=== PATIENT | male | born 1960 | race Caucasian/White ===

== ENCOUNTER → 2019-10-10 | Emergency (ER) | payer SELFPAY ==
[~2019-10-10] VITALS: Ht 175.3 cm; Wt 79.8 kg
[~2019-10-10] MED LIST: cloNIDine HCL 0.1 MG TAB ONE; cloNIDine HCL 0.1 MG TAB PO ONE
[2019-10-10 03:51] LABS: Basophils # (auto) 0.1 10 ^3/uL (0-0.2); Basophils % (auto) 1.3 % (0.0-2.0); Eosinophils # (auto) 0.3 10 ^3/uL (0-0.8); Eosinophils % (auto) 3.1 % (0.0-7.0); Hematocrit 40.9 % (41.0-53.0); Hemoglobin 14.3 g/dL (13.5-17.5); Lymphocytes % (auto) 23.8 % (10.0-50.0); Mean Corpuscular Hemoglobin 33.1 pg (28.0-32.0); Mean Corpuscular Hgb Conc. 34.9 g/dL (32.0-36.0); Mean Corpuscular Volume 94.8 fL (80.0-100.0); Monocytes % (auto) 11.3 % (0.0-12.0); Neutrophils # (auto) 5.1 10 ^3/uL (1.6-8.6); Neutrophils % (auto) 60.5 % (37.0-80.0); Platelet Count (auto) 361 10^3/uL (140-450); Red Blood Cells 4.32 10^6/uL (4.5-5.90); Red Cell Distribution Width 12.8 % (11.8-14.3); White Blood Cell 8.5 10^3/uL (4.4-10.8)
[2019-10-10 04:04] LABS: Albumin 3.9 g/dL (3.4-5.0); Anion Gap 7 (5-15); Blood Urea Nitrogen 16 mg/dL (7-18); Calcium 8.8 mg/dL (8.5-10.1); Carbon Dioxide 27 mmol/L (21-32); Chloride 99 mmol/L (98-107); Glucose 90 mg/dL (74-106); Magnesium 1.8 mg/dL (1.6-2.6); Potassium 3.7 mmol/L (3.5-5.1); Sodium 133 mmol/L (136-145)
[2019-10-10 04:06] LABS: Alanine Aminotransferase 36 U/L (16-61); Aspartate Aminotransferase 38 U/L (15-37); GFR African American 90 mL/min; GFR Non-African American 74 mL/min
[2019-10-10 04:11] LABS: Alkaline Phosphatase 125 U/L (45-117); Bilirubin, Total 0.4 mg/dL (0.2-1.0); Total Protein 8.4 g/dL (6.4-8.2)
[2019-10-10 04:57] LABS: BUN/Creatinine Ratio 14.8
[2019-10-10 05:00] VITALS: BP 167/104
[2019-10-10 06:13] LABS: Urine Bacteria NONE SEEN /hpf (None Seen); Urine Blood Negative /uL (Negative); Urine Specific Gravity 1.004 (1.001-1.035); Urine WBC <1 /hpf (0 - 3)
[2019-10-10 06:21] LABS: Alcohol, Urine < 3.0 mg/dL (0-5); Amphetamine Screen, Urine POSITIVE (NEGATIVE); Barbiturate Scree,Urine NEGATIVE (NEGATIVE); Benzodiazephine Screen, Urine NEGATIVE (NEGATIVE); Cannabinoid Screen, Urine POSITIVE (NEGATIVE); Cocaine Screen, Urine NEGATIVE (NEGATIVE); Opiate Scree,Urine NEGATIVE (NEGATIVE); Phencyclidine Screen, Urine NEGATIVE (NEGATIVE)
== END | disposition home or self-care (01) ==
LOC: EDUNIT# 02:48 → ER 03:04 → EDBD 03:04
DX: I10 Essential (primary) hypertension (principal); F15.10 Other stimulant abuse, uncomplicated; F17.210 Nicotine dependence, cigarettes, uncomplicated; R00.2 Palpitations
CPT/HCPCS: 36415; 71045; 80053; 80307; 81001; 83735; 83880; 84443; 84484; 85025; 93005

== ENCOUNTER 2019-10-13 13:04 | Inpatient (IN) | payer MEDICAID ==
[~2019-10-13] VITALS: Ht 175.3 cm; Wt 76.0 kg
[2019-10-13] MEDS ORDERED: CLINDAMYCIN 600MG IV 50 ML IV ONE (16:30)
[2019-10-13 16:34] LABS: Basophils # (auto) 0.1 10 ^3/uL (0-0.2); Basophils % (auto) 0.3 % (0.0-2.0); Eosinophils # (auto) 0 10 ^3/uL (0-0.8); Hematocrit 37.5 % (41.0-53.0); Hemoglobin 12.7 g/dL (13.5-17.5); Lymphocytes # (auto) 0.6 10 ^3/uL (0.4-5.4); Lymphocytes % (auto) 2.9 % (10.0-50.0); Mean Corpuscular Hemoglobin 32.1 pg (28.0-32.0); Mean Corpuscular Hgb Conc. 33.9 g/dL (32.0-36.0); Mean Corpuscular Volume 94.5 fL (80.0-100.0); Monocytes # (auto) 0.8 10 ^3/uL (0-1.3); Neutrophils # (auto) 18.7 10 ^3/uL (1.6-8.6); Neutrophils % (auto) 92.8 % (37.0-80.0); Platelet Count (auto) 259 10^3/uL (140-450); Red Blood Cells 3.97 10^6/uL (4.5-5.90); Red Cell Distribution Width 12.8 % (11.8-14.3); White Blood Cell 20.1 10^3/uL (4.4-10.8)
[2019-10-13 16:53] LABS: Albumin 3.2 g/dL (3.4-5.0); BUN/Creatinine Ratio 13.6; Calcium 8.5 mg/dL (8.5-10.1); Potassium 3.8 mmol/L (3.5-5.1)
[2019-10-13 16:55] LABS: Bilirubin, Total 0.7 mg/dL (0.2-1.0); Total Protein 7.5 g/dL (6.4-8.2)
[2019-10-13] MEDS ORDERED: MORPHINE SULF INJ 2 MG/ML SYRINGE 1ML IV PRN ×2 (17:15→17:30)
[2019-10-13] MEDS ORDERED: ACETAMINOPHEN 500 MG TAB PO ONE (17:15)
[2019-10-13] MEDS ORDERED: NITROGLYCERIN 0.4 MG SL TAB SL PRN ×3 (17:15→17:30)
[2019-10-13] MEDS: SODIUM CHLORIDE 0.9% 1,000 ML IV SCH (17:27)
[2019-10-13] MEDS ORDERED: ONDANSETRON HCL 4 MG/2 ML VIAL IV PRN (17:30)
[2019-10-13] MEDS ORDERED: ALUM & MAG HYDROX-SIMETH LIQ(MAALOX) 30 ML PO ONE (17:30)
[2019-10-13] MEDS ORDERED: VANCOMYCIN PER PHARMACY 0 MG IV SCH (17:30)
[2019-10-13] MEDS ORDERED: PIPERACILLIN-TAZO 4.5GM 100 ML IV ONE (17:30)
[2019-10-13] MEDS ORDERED: LORazepam 0.5 MG TAB PO PRN (17:30)
[2019-10-13] MEDS ORDERED: SODIUM CHLORIDE 0.9% 2,300 ML IV ONE (17:30)
[2019-10-13] MEDS ORDERED: DEXTROSE (50%) 50ML SYRG IV PRN (17:30)
[2019-10-13] MEDS ORDERED: MORPHINE SULFATE 4 MG/ML SYR/VIAL IV PRN (17:30)
[2019-10-13] MEDS: ASPirin 81 mg TAB PO SCH (17:36)
[2019-10-13] MEDS ORDERED: MULTIPLE VITAMIN TAB PO ONE (17:45)
[2019-10-13] MEDS ORDERED: FOLIC ACID 1 MG TAB PO ONE (17:45)
[2019-10-13] MEDS ORDERED: cloNIDine HCL 0.1 MG TAB PO PRN (17:45)
[2019-10-13] MEDS ORDERED: FAMOTIDINE 20 MG TAB PO ONE (17:45)
[2019-10-13] MEDS: InsuLIN REG 1unit/0.01ml Soln (100units/ml) SC SCH (18:00)
[2019-10-13] MEDS: ACCU-CHEK COMFORT CURVE STRIP VI SCH (18:00)
--- NOTE | 2019-10-13 21:00 | NUR ---
ADMITTED PATIENT FROM THE ER, AAOX4. NO DISTRESS NOTED. AFEBRILE. COMPLAINED OF RIGHT FOOT PAIN. WILL MEDICATE PATIENT. NO SOB NOTED. INTRODUCED MYSELF TO THE PATIENT. ORIENTATION GIVEN. ROUTINE ADMISSION DONE. POCS DISCUSSED WITH PATIENT AND SHOWED UNDERSTANDING. BED KEPT ON LOWEST POSITION. SIDE RAILS UP. CALL LIGHT/TABLE IN REACH. KEPT COMFORTABLE.
[2019-10-13] MEDS: VANCOMYCIN 1GM/250ML 250 ML IV SCH (21:30)
[2019-10-13] MEDS: OXYCODONE W/ ACETAMINOPHEN 5/325MG TABLET PO PRN (21:33)
[2019-10-13 22:00] VITALS: BP_SYST 123; BP_SYST 127; BP_DIAS 74
[2019-10-13 22:30] VITALS: BP 123/74
[2019-10-14] MEDS: PIPERACILLIN-TAZOB 3.375GM 100 ML IV SCH ×4 (00:32→18:47)
[2019-10-14] MEDS: ACCU-CHEK COMFORT CURVE STRIP VI SCH ×4 (00:32→17:55)
[2019-10-14 05:00] VITALS: BP 137/76
[2019-10-14] MEDS: InsuLIN REG 1unit/0.01ml Soln (100units/ml) SC SCH ×4 (05:58→17:57)
[2019-10-14] MEDS: SODIUM CHLORIDE 0.9% 1,000 ML IV SCH ×2 (05:59→21:37)
[2019-10-14 06:11] LABS: Basophils # (auto) 0 10 ^3/uL (0-0.2); Basophils % (auto) 0.2 % (0.0-2.0); Eosinophils # (auto) 0 10 ^3/uL (0-0.8); Hemoglobin 11.9 g/dL (13.5-17.5); Lymphocytes # (auto) 0.6 10 ^3/uL (0.4-5.4); Lymphocytes % (auto) 3.6 % (10.0-50.0); Mean Corpuscular Hemoglobin 31.9 pg (28.0-32.0); Mean Corpuscular Volume 93.7 fL (80.0-100.0); Monocytes # (auto) 1.2 10 ^3/uL (0-1.3); Monocytes % (auto) 6.9 % (0.0-12.0); Neutrophils # (auto) 15.6 10 ^3/uL (1.6-8.6); Neutrophils % (auto) 89.3 % (37.0-80.0); Platelet Count (auto) 247 10^3/uL (140-450); Red Blood Cells 3.73 10^6/uL (4.5-5.90); White Blood Cell 17.4 10^3/uL (4.4-10.8)
[2019-10-14 06:15] LABS: Albumin 2.7 g/dL (3.4-5.0); Anion Gap 9 (5-15); Blood Urea Nitrogen 16 mg/dL (7-18); Carbon Dioxide 24 mmol/L (21-32); Chloride 98 mmol/L (98-107); Glucose 99 mg/dL (74-106); Magnesium 1.7 mg/dL (1.6-2.6); Potassium 3.8 mmol/L (3.5-5.1); Sodium 131 mmol/L (136-145)
[2019-10-14 06:25] LABS: Alanine Aminotransferase 35 U/L (16-61); Alkaline Phosphatase 88 U/L (45-117); Aspartate Aminotransferase 40 U/L (15-37); BUN/Creatinine Ratio 15.8; Bilirubin, Total 0.6 mg/dL (0.2-1.0); Cholesterol 133 mg/dL (< 200); GFR African American 97 mL/min; GFR Non-African American 80 mL/min; HDL Cholesterol 70 mg/dL (40-59); LDL Cholesterol 51 mg/dL (< 100); Lactate Dehydrogenase 210 U/L (87-241); Phosphorus 1.8 mg/dL (2.5-4.90); Total Protein 6.9 g/dL (6.4-8.2); Triglycerides 47 mg/dL (< 150)
[2019-10-14 06:34] LABS: CRP High Sensitivity > 19 mg/dL (< 0.3)
[2019-10-14 07:28] LABS: Urine Bacteria NONE SEEN /hpf (None Seen); Urine Blood 2+ /uL (Negative); Urine Specific Gravity 1.019 (1.001-1.035); Urine WBC <1 /hpf (0 - 3)
--- NOTE | 2019-10-14 07:30 | NUR ---
Opening Shift Note Assuming care of patient at this time. Patient is awake and alert. Patient denies pain. Patient shows no signs or symptoms of distress or shortness of breath. Bed is locked and lowered with side rails up x2. Instructed patient on the plan of care for today and to call for assistance as needed. Call light within reach. Will continue to round hourly and as needed.
[2019-10-14 07:44] LABS: Alcohol, Urine < 3.0 mg/dL (0-5); Amphetamine Screen, Urine POSITIVE (NEGATIVE); Barbiturate Scree,Urine NEGATIVE (NEGATIVE); Benzodiazephine Screen, Urine NEGATIVE (NEGATIVE); Cannabinoid Screen, Urine POSITIVE (NEGATIVE); Cocaine Screen, Urine NEGATIVE (NEGATIVE); Opiate Scree,Urine NEGATIVE (NEGATIVE); Phencyclidine Screen, Urine NEGATIVE (NEGATIVE)
[2019-10-14] MEDS: VANCOMYCIN 1GM/250ML 250 ML IV SCH ×2 (08:49→21:41)
[2019-10-14 09:00] VITALS: BP 134/76
[2019-10-14] MEDS: ASPirin 81 mg TAB PO SCH (09:55)
[2019-10-14] MEDS: FOLIC ACID 1 MG TAB PO SCH (09:55)
[2019-10-14] MEDS: DOCUSATE SOD 100 MG CAP PO SCH (09:55)
[2019-10-14] MEDS: FAMOTIDINE 20 MG TAB PO SCH ×2 (09:55→21:41)
[2019-10-14] MEDS: MULTIPLE VITAMIN TAB PO SCH (09:55)
[2019-10-14] MEDS: ENOXAPARIN SOD 40 MG/0.4 ML SYRINGE SC SCH (09:56)
--- NOTE | 2019-10-14 09:59 | NUR ---
Received Dumper Consult as pt has been homeless for over a year. Pt is alert and oriented times 3. Pt states he has been residing on the streets or with friends if the allow him. Pt does not have any ID. Pt states he rejects the idea that he go to a jail. Pt has a sore on the bottom of his foot and cellulitis down his leg. Pt states he will not go to a SNF if ne needs additional care. Pt states he does not use drugs. However, on the consult it states that he does. Pt has no cell phone, he states he has clothes, may need transportation and a sack lunch. Pt cannot go to jail without Id. Pt states he refuses to go to the [facility] on [address] ([id number] [place] [address]) 6:30PM -7am. Will need follow. Pt accepted the resource packet.
--- NOTE | 2019-10-14 10:00 | NUR ---
Wound Care Photos Wound care photos taken at this time. Patient tolerated well.
--- NOTE | 2019-10-14 10:30 | NUR ---
WOUND CARE NOTE: IN TO SEE PATIENT AT THIS TIME PER WOUND CARE CONSULT REQUEST. PATIENT RECENTLY ADMITTED TO [facility] WITH DIAGNOSIS OF R FOOT CELLULITIS. PATIENT WAS NOTED TO HAVE A WOUND TO THE RIGHT PLANTAR FOOT UPON ADMIT. WOUND PHOTO WAS TAKEN BY BEDSIDE NURSE FOR REFERENCE. PATIENT HAS CURRENT CLARA SCORE OF 21. PATIENT IS FULLY AMBULATORY, CAN SELF TURN/REPOSITION SELF. PATIENT STATES THAT HE NOTICED A WOUND TO THE RIGHT PLANTAR FOREFOOT APPROXIMATELY ONE WEEK AGO, D/T ILL FITTING SHOE. PATIENT IS NOTED TO HAVE A 2 X 2.5 CM NECROTIC ULCER COVERED WITH BLACK SOFT ESCHAR. APPEARS TO HAVE STARTED A BLISTER. THERE IS NO OPEN AREAS, NO DRAINAGE NOTED. APPLIED OPTIFOAM GENTLE DRESSING AND STOCKINETTE TO WOUND, WOUND WILL DRAIN WHEN PATIENT AMBULATES. PATIENT HAS A PODIATRY CONSULT PENDING WITH DR. CASTILLO. NO OTHER WOUNDS NOTED AT THIS TIME. RECOMMENDATIONS: WILL DEFER ALL RECOMMENDATIONS TO ENERGY ENGINEER AT THIS TIME. NO FURTHER WOUND CARE MONITORING NEEDED. Addendum: 10/14/19 at 1428 by Jessica Tyler RN Amended: Links added.
[2019-10-14] MEDS ORDERED: SODIUM PHOSPHATES 24 MEQ in SODIUM CHL 0.9% 100 ML IV ONE (11:00)
[2019-10-14 11:36] LABS: INR 1.06 (0.9-1.15)
[2019-10-14] MEDS: MAGNESIUM SULFATE 1GM/100ML 100 ML IV SCH ×2 (12:27→17:20)
[2019-10-14 13:00] VITALS: BP 156/82
--- NOTE | 2019-10-14 15:30 | NUR ---
Podiatry Consult Dr. Parks at bedside for podiatry consult. Wound care done by at this time.
[2019-10-14 16:40] VITALS: BP 158/99
--- NOTE | 2019-10-14 19:35 | NUR ---
OPENING NOTE REPORT RECEIVED FROM DAY SHIFT RN PATIENT IS A/OX4 RESTING IN BED, NO S/S OF DISTRESS. PHYSICAL ASSESSMENT DONE-SEE INTERVENTIONS. IV NOTED TO RIGHT AND LEFT AC. DRESSING TO RIGHT FOOT. RIGHT LEG REDNESS AND SWELLING NOTED. POC DISCUSSED, ALL QUESTIONS ANSWERED. WILL MONITOR Q1H PRN THROUGHOUT SHIFT, CALL LIGHT WITHIN REACH.
--- NOTE | 2019-10-14 19:35 | NUR ---
Closing Shift Note Patient resting in bed. No distress noted. Report given. Will endorse care to the office technology professor RN.
[2019-10-14] MEDS: OXYCODONE W/ ACETAMINOPHEN 5/325MG TABLET PO PRN (21:46)
--- NOTE | 2019-10-14 21:46 | NUR ---
PAIN PATIENT C/O 10/10 PAIN TO RIGHT LEG. ORDERED PERCOCET ADMINISTERED- SEE INTERVENTIONS WILL REASSESS IN ONE HOUR
[2019-10-14 21:50] VITALS: BP 143/88
--- NOTE | 2019-10-14 22:46 | NUR ---
PAIN REASSESSMENT PATIENT STATES PAIN IS NOW AT 5/10. PATIENT COMFORTABLE AT THIS TIME
[2019-10-15] MEDS: PIPERACILLIN-TAZOB 3.375GM 100 ML IV SCH ×5 (00:06→23:44)
[2019-10-15] MEDS: ACCU-CHEK COMFORT CURVE STRIP VI SCH ×5 (00:07→23:55)
--- NOTE | 2019-10-15 03:30 | NUR ---
IV removal. IV TO RIGHT AC OUT. PT ACCIDENTALLY PULLED IT OUT WHILE SLEEPING catheter fully intact. Pressure dressing applied to site. Patient tolerated well.
--- NOTE | 2019-10-15 03:45 | NUR ---
IV insertion IV access obtained, via clean sterile technique by inserting 20 gauge catheter at RIGHT FOREARM after 1 attempt. IV secured properly. No trauma to site. Patient tolerated well.
[2019-10-15 05:09] VITALS: BP 131/78
[2019-10-15] MEDS: OXYCODONE W/ ACETAMINOPHEN 5/325MG TABLET PO PRN ×5 (05:33→23:55)
[2019-10-15] MEDS: InsuLIN REG 1unit/0.01ml Soln (100units/ml) SC SCH ×5 (05:33→23:55)
--- NOTE | 2019-10-15 05:33 | NUR ---
PAIN PATIENT C/O 10/10 PAIN TO RIGHT LEG. PATIENT REQUESTS HIS PERCOCET. PERCOCET ADMINISTERED ORDERED, SEE EMAR FOR DETAILS. WILL REASSESS PAIN IN ONE HOUR
[2019-10-15 05:46] LABS: Basophils # (auto) 0 10 ^3/uL (0-0.2); Basophils % (auto) 0.3 % (0.0-2.0); Eosinophils # (auto) 0 10 ^3/uL (0-0.8); Eosinophils % (auto) 0.2 % (0.0-7.0); Hematocrit 34.9 % (41.0-53.0); Hemoglobin 12.1 g/dL (13.5-17.5); Lymphocytes % (auto) 7.3 % (10.0-50.0); Mean Corpuscular Hemoglobin 32.7 pg (28.0-32.0); Mean Corpuscular Hgb Conc. 34.7 g/dL (32.0-36.0); Mean Corpuscular Volume 94.2 fL (80.0-100.0); Monocytes # (auto) 1.4 10 ^3/uL (0-1.3); Monocytes % (auto) 10.5 % (0.0-12.0); Neutrophils # (auto) 10.9 10 ^3/uL (1.6-8.6); Neutrophils % (auto) 81.7 % (37.0-80.0); Platelet Count (auto) 252 10^3/uL (140-450); Red Cell Distribution Width 12.8 % (11.8-14.3); White Blood Cell 13.4 10^3/uL (4.4-10.8)
[2019-10-15 06:07] LABS: Albumin 2.7 g/dL (3.4-5.0); Anion Gap 7 (5-15); Blood Urea Nitrogen 14 mg/dL (7-18); Calcium 8.2 mg/dL (8.5-10.1); Carbon Dioxide 28 mmol/L (21-32); Chloride 98 mmol/L (98-107); Glucose 86 mg/dL (74-106); Magnesium 2.2 mg/dL (1.6-2.6); Potassium 3.7 mmol/L (3.5-5.1); Sodium 133 mmol/L (136-145)
[2019-10-15 06:19] LABS: Alanine Aminotransferase 37 U/L (16-61); Alkaline Phosphatase 100 U/L (45-117); Aspartate Aminotransferase 45 U/L (15-37); BUN/Creatinine Ratio 12.7; Bilirubin, Total 0.4 mg/dL (0.2-1.0); GFR African American 88 mL/min; GFR Non-African American 73 mL/min; Total Protein 7.5 g/dL (6.4-8.2)
[2019-10-15 06:24] LABS: CRP High Sensitivity > 19 mg/dL (< 0.3)
--- NOTE | 2019-10-15 06:33 | NUR ---
PAIN REASSESSMENT PATIENT IS SLEEPING COMFORTABLY. NO VISIBLE SIGNS OF PAIN OR DISTRESS
--- NOTE | 2019-10-15 06:52 | NUR ---
CLOSING PATIENT SLEEPING COMFORTABLY. NO S/S OF DISTRESS. CALL LIGHT WITHIN REACH. WILL ENDORSE CARE TO AM SHIFT RN
--- NOTE | 2019-10-15 07:25 | NUR ---
Opening shift note Assumed care of patient. Patient A&Ox4, respirations even and non-labored with no s/s of distress. Discussed POC with patient who verbalized understanding. IVs flushed, patent and intact. Bed lowered/locked with 2 side rails up. Call light within reach. Will continue to monitor.
[2019-10-15 08:30] VITALS: BP 123/77
[2019-10-15] MEDS: SODIUM CHLORIDE 0.9% 1,000 ML IV SCH ×2 (09:27→23:44)
[2019-10-15] MEDS: FOLIC ACID 1 MG TAB PO SCH (11:03)
[2019-10-15] MEDS: DOCUSATE SOD 100 MG CAP PO SCH (11:03)
[2019-10-15] MEDS: ASPirin 81 mg TAB PO SCH (11:03)
[2019-10-15] MEDS: ENOXAPARIN SOD 40 MG/0.4 ML SYRINGE SC SCH (11:04)
[2019-10-15] MEDS: MULTIPLE VITAMIN TAB PO SCH (11:04)
[2019-10-15] MEDS: FAMOTIDINE 20 MG TAB PO SCH ×2 (11:04→21:57)
[2019-10-15] MEDS: VANCOMYCIN 1GM/250ML 250 ML IV SCH ×2 (12:41→21:43)
--- NOTE | 2019-10-15 16:20 | NUR ---
D/C Planning Per SS consult for wound care. Patient does not have home health benefits with [facility]. MD Dr. Burr was informed.
--- NOTE | 2019-10-15 17:06 | NUR ---
Pain Patient is complaining of 10/10 pain to his right leg. Will administer percocet per doctor's orders.
--- NOTE | 2019-10-15 17:07 | NUR ---
Low Blood Sugar Checked patient's blood sugar at this time. Blood sugar was 59L. Gave 3 orange juice boxes at this time. Patient is asymptomatic.
--- NOTE | 2019-10-15 17:14 | NUR ---
Reassess Blood sugar Reassessed patient's blood sugar, currently 67L at this time.
[2019-10-15 17:30] VITALS: BP 141/92
--- NOTE | 2019-10-15 17:53 | NUR ---
Blood sugar Patient's blood sugar is currently 120. Patient has remained asymptomatic.
--- NOTE | 2019-10-15 18:06 | NUR ---
Pain Reassessment Patient's pain is now 7/10 which has only slightly improved. Patient has no other pain medication ordered. Patient is not comfortable. Will notify MD.
--- NOTE | 2019-10-15 18:15 | NUR ---
New Pain Medication Dr. Burr aware of pain unrelieved by Percocet. New orders given. Will administer according to doctor's orders.
[2019-10-15] MEDS: traMADol HCL 50 MG TAB PO PRN (18:45)
--- NOTE | 2019-10-15 18:45 | NUR ---
Pain Patient is complaining of pain 6/10 to lower extremity. Will administer tramadol per doctor's orders.
--- NOTE | 2019-10-15 19:19 | NUR ---
Closing Shift Note Patient resting in bed. No distress noted. Right foot is elevated on pillows. Report given. Will endorse care to the spiral runner RN.
--- NOTE | 2019-10-15 19:30 | NUR ---
OPENING NOTE REPORT RECEIVED FROM DAYSHIFT RN PATIENT IS A/OX4 RESTING COMFORTABLY IN BED. PATIENT DENIES PAIN AT THIS TIME. PHYSICAL ASSESSMENT DONE-SEE INTERVENTIONS. POC DISCUSSED WITH PATIENT AND ALL QUESTIONS ANSWERED. WILL MONITOR Q1H PRN THROUGHOUT SHIFT. CALL LIGHT WITHIN REACH.
[2019-10-15] MEDS ORDERED: VANCOMYCIN 1GM/250ML 250 ML IV SCH (20:00)
[2019-10-15 21:00] VITALS: BP 127/69
[2019-10-15] MEDS: DAKINS HALF STR 0.25% (NaHypochlorite) 473 ML TOPICAL SOL TOP SCH ×2 (21:57→22:34)
--- NOTE | 2019-10-15 22:35 | NUR ---
WOUND CARE TO RIGHT FOOT DONE PER MD ORDER WOUND CARE PERFORMED ACCORDING TO NOTE
--- NOTE | 2019-10-15 23:55 | NUR ---
PAIN PATIENT STATES HE HAS 8/10 PAIN TO RIGHT LEG. PATIENT REQUESTS HIS PERCOCET. PERCOCET ADMINISTERED ORDERED BY MD, SEE EMAR FOR DETAILS. WILL REASSESS PAIN IN ONE HOUR
--- NOTE | 2019-10-16 00:55 | NUR ---
PAIN REASSESSMENT PATIENT SLEEPING. NO VISIBLE SIGNS OF PAIN OR DISCOMFORT
[2019-10-16] MEDS: traMADol HCL 50 MG TAB PO PRN (04:38)
--- NOTE | 2019-10-16 04:38 | NUR ---
PAIN PATIENT RATES PAIN TO RIGHT LEG AT 6/10 ON NUMERIC SCALE TRAMADOL GIVEN ORDERED AND PER MD ORDER-SEE EMAR FOR DETAILS WILL REASSESS PAIN LEVEL IN ONE HOUR
[2019-10-16 05:00] VITALS: BP 146/87
[2019-10-16] MEDS: PIPERACILLIN-TAZOB 3.375GM 100 ML IV SCH ×4 (05:33→23:51)
[2019-10-16] MEDS: ACCU-CHEK COMFORT CURVE STRIP VI SCH ×2 (05:33→11:42)
[2019-10-16] MEDS: VANCOMYCIN 1GM/250ML 250 ML IV SCH ×3 (05:33→21:35)
[2019-10-16] MEDS: InsuLIN REG 1unit/0.01ml Soln (100units/ml) SC SCH ×2 (05:36→11:43)
--- NOTE | 2019-10-16 05:38 | NUR ---
PAIN REASSESSMENT PATIENT SLEEPING. NO SIGNS OF PAIN NOTED WILL CONTINUE TO MONITOR
--- NOTE | 2019-10-16 06:49 | NUR ---
CLOSING PATIENT SLEEPING COMFORTABLY AT THIS TIME. NO S/S OF DISTRESS. CALL LIGHT WITHIN REACH. WILL ENDORSE CARE TO DAYSHIFT RN
--- NOTE | 2019-10-16 07:15 | NUR ---
OPENING SHIFT NOTE ASSUMED CARE OF PATIENT FROM SHOP DIRECTOR HANNY VALENZUELA. PATIENT HAS NO S/S OF DISTRESS/SOB OR PAIN. INSTRUCTED PATIENT ON POC, PATIENT VERBALIZED UNDERSTANDING. BED IS IN LOWEST POSITION WITH SIDE RAILS RAISED X2, BED WHEELS LOCKED, CALL LIGHT AND URINAL IS WITHIN REACH. WILL CONTINUE TO MONITOR.
[2019-10-16 08:51] VITALS: BP 139/84
[2019-10-16] MEDS: MULTIPLE VITAMIN TAB PO SCH (09:46)
[2019-10-16] MEDS: ASPirin 81 mg TAB PO SCH (09:46)
[2019-10-16] MEDS: DOCUSATE SOD 100 MG CAP PO SCH (09:46)
[2019-10-16] MEDS: FAMOTIDINE 20 MG TAB PO SCH ×2 (09:46→21:35)
[2019-10-16] MEDS: FOLIC ACID 1 MG TAB PO SCH (09:47)
[2019-10-16] MEDS: ENOXAPARIN SOD 40 MG/0.4 ML SYRINGE SC SCH (09:47)
[2019-10-16] MEDS: DAKINS HALF STR 0.25% (NaHypochlorite) 473 ML TOPICAL SOL TOP SCH ×2 (11:12→22:24)
--- NOTE | 2019-10-16 11:15 | NUR ---
WOUND CARE DONE ORDERED. PATIENT TOLERATED WELL.
[2019-10-16 12:30] VITALS: BP 140/85
--- NOTE | 2019-10-16 12:43 | NUR ---
Dr. Holliday at bedside. to see patient. Plan of care discussed with patient, no new orders received. Will continue to monitor. Addendum: 10/16/19 at 1436 by HUMAIRA STALLINGS RN RN Per D/C Acu Checks.
--- NOTE | 2019-10-16 12:45 | NUR ---
PER DR. PETERSEN OKAY TO DISCONTINUE ACCU CHECKS
--- NOTE | 2019-10-16 13:20 | NUR ---
Vacomycin Lab Called Lab for Vacomycin lab. result, rim technician stated their machine was down and it would take another 7-10mins to get a result.
[2019-10-16] MEDS: SODIUM CHLORIDE 0.9% 1,000 ML IV SCH (14:09)
[2019-10-16 16:44] VITALS: BP 137/87
--- NOTE | 2019-10-16 19:18 | NUR ---
CLOSING SHIFT NOTE ENDORSED CARE TO CAMPUS POLICE OFFICER HANNY CHOW. PATIENT HAS NO S/S OF DISTRESS/SOB OR PAIN AT THIS TIME.
--- NOTE | 2019-10-16 19:20 | NUR ---
opening note pt aox4. respirations even and nonlabored on room air. pt has dressing to rt lower extremity for foot cellulitis. bed in low locked position, call light within reach.
--- NOTE | 2019-10-16 21:35 | NUR ---
pt c/o pain at RLE, pain of an 8/10. pt will be medicated appropriately.
[2019-10-16] MEDS: OXYCODONE W/ ACETAMINOPHEN 5/325MG TABLET PO PRN (21:44)
[2019-10-16 22:00] VITALS: BP 148/86
--- NOTE | 2019-10-16 22:15 | NUR ---
wound care of RLE completed. pt did not experience pain or discomfort, tolerated dressing change well.
[2019-10-17 04:46] VITALS: BP 148/98
[2019-10-17] MEDS: VANCOMYCIN 1GM/250ML 250 ML IV SCH ×3 (04:46→21:02)
[2019-10-17] MEDS: PIPERACILLIN-TAZOB 3.375GM 100 ML IV SCH ×4 (06:05→23:50)
[2019-10-17 06:38] LABS: Basophils # (auto) 0 10 ^3/uL (0-0.2); Basophils % (auto) 0.4 % (0.0-2.0); Eosinophils # (auto) 0.1 10 ^3/uL (0-0.8); Eosinophils % (auto) 1.1 % (0.0-7.0); Hematocrit 35.3 % (41.0-53.0); Hemoglobin 12.2 g/dL (13.5-17.5); Lymphocytes # (auto) 1.3 10 ^3/uL (0.4-5.4); Lymphocytes % (auto) 14.9 % (10.0-50.0); Mean Corpuscular Hemoglobin 32.5 pg (28.0-32.0); Mean Corpuscular Hgb Conc. 34.7 g/dL (32.0-36.0); Mean Corpuscular Volume 93.9 fL (80.0-100.0); Monocytes # (auto) 1.3 10 ^3/uL (0-1.3); Monocytes % (auto) 14.3 % (0.0-12.0); Neutrophils # (auto) 6.2 10 ^3/uL (1.6-8.6); Neutrophils % (auto) 69.3 % (37.0-80.0); Platelet Count (auto) 341 10^3/uL (140-450); Red Blood Cells 3.76 10^6/uL (4.5-5.90); Red Cell Distribution Width 12.6 % (11.8-14.3); White Blood Cell 8.9 10^3/uL (4.4-10.8)
--- NOTE | 2019-10-17 06:46 | NUR ---
closing note pt resting in rt lateral position, sleeping. no s/s of pain or discomfort. respirations are even and nonlabored on room air. bed in low locked position, call light within reach.
[2019-10-17 06:57] LABS: Calcium 8.9 mg/dL (8.5-10.1); Potassium 3.8 mmol/L (3.5-5.1)
[2019-10-17 06:59] LABS: BUN/Creatinine Ratio 11.7
--- NOTE | 2019-10-17 07:15 | NUR ---
OPENING SHIFT NOTE ASSUMED CARE OF PATIENT FROM CUTTER BRAKE LINING HANNY CHOW. PATIENT HAS NO S/S OF DISTRESS/SOB OR PAIN. INSTRUCTED PATIENT ON POC, PATIENT VERBALIZED UNDERSTANDING. BED IS IN LOWEST POSITION WITH SIDE RAILS RAISED X2, BED WHEELS LOCKED, CALL LIGHT AND URINAL ARE WITHIN REACH.
[2019-10-17 08:10] VITALS: BP 151/89
[2019-10-17 09:00] VITALS: BP 151/89
[2019-10-17] MEDS: DOCUSATE SOD 100 MG CAP PO SCH (10:02)
[2019-10-17] MEDS: MULTIPLE VITAMIN TAB PO SCH (10:02)
[2019-10-17] MEDS: FAMOTIDINE 20 MG TAB PO SCH ×2 (10:02→22:11)
[2019-10-17] MEDS: ENOXAPARIN SOD 40 MG/0.4 ML SYRINGE SC SCH (10:03)
[2019-10-17] MEDS: DAKINS HALF STR 0.25% (NaHypochlorite) 473 ML TOPICAL SOL TOP SCH ×2 (10:03→23:28)
[2019-10-17] MEDS: ASPirin 81 mg TAB PO SCH (10:03)
[2019-10-17] MEDS: FOLIC ACID 1 MG TAB PO SCH (10:03)
--- NOTE | 2019-10-17 10:05 | NUR ---
WOUND CARE DONE. PATIENT TOLERATED WELL.
[2019-10-17 13:00] VITALS: BP 147/90
--- NOTE | 2019-10-17 13:51 | NUR ---
IV insertion IV access obtained, via clean sterile technique by inserting 22 gauge catheter at MARIZOL after 2 attempts. IV secured properly. No trauma to site. Patient tolerated well.
[2019-10-17 17:00] VITALS: BP 155/99
--- NOTE | 2019-10-17 19:25 | NUR ---
CLOSING SHIFT NOTE ENDORSED CARE TO [employer] CONSULTANT HANNY CHOW. PATIENT HAS NO S/S OF DISTRESS/SOB OR PAIN AT THIS TIME. WILL CONTINUE TO MONITOR.
--- NOTE | 2019-10-17 19:30 | NUR ---
opening note pt resting in in right lateral position with eyes closed. respirations are even and non labored on room air. no s/s of pain or discomfort at this time. will continue to monitor.
[2019-10-17 22:00] VITALS: BP 125/79
--- NOTE | 2019-10-17 22:30 | NUR ---
wound care completed as ordered. pt tolerated well.
[2019-10-18] MEDS: VANCOMYCIN 1GM/250ML 250 ML IV SCH ×3 (04:37→21:21)
[2019-10-18] MEDS: PIPERACILLIN-TAZOB 3.375GM 100 ML IV SCH ×4 (05:28→23:55)
[2019-10-18] MEDS: traMADol HCL 50 MG TAB PO PRN (05:32)
[2019-10-18 06:00] VITALS: BP 140/92
--- NOTE | 2019-10-18 06:55 | NUR ---
closing note pt resting in left lateral position with eyes closed. respirations even and nonlabored on room air. no s/s of pain or discomfort. bed in low locked position, call light within reach.
--- NOTE | 2019-10-18 07:34 | NUR ---
Opening Shift Note Assumed care of patient, awake and alert. No S/S of distress/SOB or Pain reported. Instructed on POC and to call for assist PRN, will continue to monitor for changes Q1hr and PRN.
[2019-10-18 09:00] VITALS: BP 125/76
[2019-10-18] MEDS: DOCUSATE SOD 100 MG CAP PO SCH (10:00)
[2019-10-18] MEDS: DAKINS HALF STR 0.25% (NaHypochlorite) 473 ML TOPICAL SOL TOP SCH ×2 (10:09→23:55)
[2019-10-18] MEDS: ENOXAPARIN SOD 40 MG/0.4 ML SYRINGE SC SCH (10:09)
[2019-10-18] MEDS: MULTIPLE VITAMIN TAB PO SCH (10:09)
[2019-10-18] MEDS: FAMOTIDINE 20 MG TAB PO SCH ×2 (10:09→21:22)
[2019-10-18] MEDS: FOLIC ACID 1 MG TAB PO SCH (10:09)
[2019-10-18] MEDS: ASPirin 81 mg TAB PO SCH (10:09)
--- NOTE | 2019-10-18 10:10 | NUR ---
PT REFUSED COLACE PT STATED "I HAD A BOWEL MOVEMENT EARLY THIS MORNING AND I NO LONGER NEED THAT
--- NOTE | 2019-10-18 11:48 | NUR ---
IV removal IV DC'd with clean sterile technique, catheter fully intact. Pressure dressing applied to site. Patient tolerated well. Addendum: 10/18/19 at 1328 by BRADEN OVALLES RN RN INCORRECT PATIENT
--- NOTE | 2019-10-18 11:53 | NUR ---
ROUNDING MD JUDY PETERSEN AT BEDSIDE. ALL QUESTIONS AND CONCERNS ADDRESSED AT THIS TIME
--- NOTE | 2019-10-18 12:12 | NUR ---
IV insertion IV access obtained, via clean sterile technique by inserting 22 gauge catheter at RIGHT UPPER ARM after 1 attempt(s). IV secured properly. No trauma to site. Patient tolerated well. Addendum: 10/18/19 at 1213 by BRADEN OVALLES RN RN INCORRECT PATIENT
[2019-10-18 12:28] LABS: Basophils # (auto) 0.1 10 ^3/uL (0-0.2); Hemoglobin 13.2 g/dL (13.5-17.5); Lymphocytes # (auto) 1.6 10 ^3/uL (0.4-5.4); Mean Corpuscular Volume 93.8 fL (80.0-100.0); Neutrophils # (auto) 7.9 10 ^3/uL (1.6-8.6); Red Cell Distribution Width 12.7 % (11.8-14.3); White Blood Cell 10.9 10^3/uL (4.4-10.8)
[2019-10-18 12:29] LABS: Basophils % (auto) 0.5 % (0.0-2.0); Eosinophils # (auto) 0.1 10 ^3/uL (0-0.8); Eosinophils % (auto) 1.3 % (0.0-7.0); Hematocrit 38.3 % (41.0-53.0); Lymphocytes % (auto) 14.8 % (10.0-50.0); Mean Corpuscular Hemoglobin 32.2 pg (28.0-32.0); Mean Corpuscular Hgb Conc. 34.3 g/dL (32.0-36.0); Monocytes # (auto) 1.2 10 ^3/uL (0-1.3); Neutrophils % (auto) 72.4 % (37.0-80.0); Platelet Count (auto) 466 10^3/uL (140-450); Red Blood Cells 4.09 10^6/uL (4.5-5.90)
[2019-10-18 12:40] LABS: BUN/Creatinine Ratio 18.6; Calcium 9.1 mg/dL (8.5-10.1); Potassium 4.4 mmol/L (3.5-5.1)
[2019-10-18 13:00] VITALS: BP 147/90
--- NOTE | 2019-10-18 13:42 | NUR ---
WOUND CARE COMPLETED PER MD ORDERS
[2019-10-18 17:00] VITALS: BP 117/87
--- NOTE | 2019-10-18 19:30 | NUR ---
opening note. pt resting in left lateral position with eyes closed. respirations even and non labored on room air. no s/s of pain or discomfort. bed in low locked position call light within reach.
[2019-10-18 22:00] VITALS: BP 138/75
--- NOTE | 2019-10-18 22:30 | NUR ---
wound care completed as ordered.
[2019-10-19] MEDS: VANCOMYCIN 1GM/250ML 250 ML IV SCH (05:05)
[2019-10-19 05:42] VITALS: BP 132/95
[2019-10-19] MEDS: PIPERACILLIN-TAZOB 3.375GM 100 ML IV SCH ×3 (05:51→17:37)
[2019-10-19 06:22] LABS: Basophils # (auto) 0.1 10 ^3/uL (0-0.2); Eosinophils # (auto) 0.3 10 ^3/uL (0-0.8); Hemoglobin 12.8 g/dL (13.5-17.5)
[2019-10-19 06:24] LABS: Basophils % (auto) 1.2 % (0.0-2.0); Eosinophils % (auto) 2.6 % (0.0-7.0); Hematocrit 36.8 % (41.0-53.0); Lymphocytes # (auto) 1.9 10 ^3/uL (0.4-5.4); Lymphocytes % (auto) 17.5 % (10.0-50.0); Mean Corpuscular Hemoglobin 32.2 pg (28.0-32.0); Mean Corpuscular Hgb Conc. 34.7 g/dL (32.0-36.0); Mean Corpuscular Volume 92.7 fL (80.0-100.0); Monocytes % (auto) 9.4 % (0.0-12.0); Neutrophils # (auto) 7.6 10 ^3/uL (1.6-8.6); Neutrophils % (auto) 69.3 % (37.0-80.0); Platelet Count (auto) 481 10^3/uL (140-450); Red Blood Cells 3.96 10^6/uL (4.5-5.90); Red Cell Distribution Width 12.6 % (11.8-14.3)
[2019-10-19 06:39] LABS: Potassium 4.2 mmol/L (3.5-5.1)
[2019-10-19 06:41] LABS: BUN/Creatinine Ratio 17.3
--- NOTE | 2019-10-19 07:02 | NUR ---
closing note. pt does not show s/s of pain or discomfort at this time . respirations even and nonlabored on room air. bed in lowest position, call light within reach.
--- NOTE | 2019-10-19 07:35 | NUR ---
OPENING NOTE ASSUMED CARE OF PT. AWAKE AND ALERT. NO S/S OF SOB/DISTRESS. BED SET TO LOWEST POSITION/LOCKED. RAILS UP X2. CALL LIGHT WITHIN REACH. WILL CONTINUE TO MONITOR Q1HR AND PRN.
[2019-10-19 08:47] VITALS: BP 132/66
[2019-10-19] MEDS: DOCUSATE SOD 100 MG CAP PO SCH (10:00)
--- NOTE | 2019-10-19 10:00 | NUR ---
WOUND CARE Wet to dry dressing with 1/4 Dakins Solution applied to right, plantar foot, wrapped with Keflex dressing per Dr Parks' s order. Patient tolerated without pain or discomfort.
--- NOTE | 2019-10-19 10:15 | NUR ---
Assumed care of patient. Verbal report received from HANNY Richardson. Patient is awake, alert and oriented X4. No signs or symptoms of distress, shortness of breath or pain. Tele# 71, sinus rhythm @ 68 bpm. IV x2, right upper arm, 20 gauge and left upper arm, 22 gauge, both patent and saline locked. Right foot dressing clean, dry an intact. Plan of care discussed with patient , verbalized understanding. Bed locked, in lowest position, call light within reach, will continue to monitor Q 1 hour and PRN.
--- NOTE | 2019-10-19 11:05 | NUR ---
ROUNDS Dr Burr and bedside for rounds, new orders received and followed through. Patient updated on plan of care, verbalized understanding.
[2019-10-19 12:44] VITALS: BP 136/86
[2019-10-19] MEDS: MULTIPLE VITAMIN TAB PO SCH (13:14)
[2019-10-19] MEDS: FOLIC ACID 1 MG TAB PO SCH (13:14)
[2019-10-19] MEDS: ASPirin 81 mg TAB PO SCH (13:14)
[2019-10-19] MEDS: ENOXAPARIN SOD 40 MG/0.4 ML SYRINGE SC SCH (13:15)
[2019-10-19] MEDS: DAKINS HALF STR 0.25% (NaHypochlorite) 473 ML TOPICAL SOL TOP SCH ×2 (13:15→21:52)
[2019-10-19] MEDS: FAMOTIDINE 20 MG TAB PO SCH ×2 (13:15→21:52)
[2019-10-19] MEDS: OXYCODONE W/ ACETAMINOPHEN 5/325MG TABLET PO PRN (13:26)
[2019-10-19 17:01] VITALS: BP 133/87
--- NOTE | 2019-10-19 19:25 | NUR ---
Care endorsed to HANNY Abraham, night nurse.
--- NOTE | 2019-10-19 19:30 | NUR ---
Opening Shift Note Assumed care of patient, sleeping, arousable to name. No S/S of distress/SOB or pain. Instructed on POC and to call for assist PRN, Call light in reach, bed in lowest position, bed in lowest position and locked, will continue to monitor for changes Q1hr and PRN.
--- NOTE | 2019-10-19 20:15 | NUR ---
Patients automotive glazier was taken off during day shift. Per patient he stated staff took it off due to discharging home today. Patient wasn't discharged home. cardiology technician picked up from urinalysis technician and placed on patient per MD admit orders for telemetry. Patient verbalized understanding.
[2019-10-19 22:00] VITALS: BP 127/79
[2019-10-20] MEDS: PIPERACILLIN-TAZOB 3.375GM 100 ML IV SCH ×3 (00:32→12:00)
[2019-10-20 05:00] VITALS: BP 133/88
--- NOTE | 2019-10-20 08:15 | NUR ---
Opening Shift Note Assumed care of patient, awake, alert and oriented. No S/S of distress/SOB or pain. Instructed on POC and to call for assist PRN. Bed locked, in lowest position, call light within reach. Will continue to monitor for changes Q1hr and PRN.
[2019-10-20 08:32] VITALS: BP 128/93
[2019-10-20] MEDS: OXYCODONE W/ ACETAMINOPHEN 5/325MG TABLET PO PRN (09:23)
[2019-10-20] MEDS: DOCUSATE SOD 100 MG CAP PO SCH (10:00)
--- NOTE | 2019-10-20 10:00 | NUR ---
WOUND CARE Wet to dry dressing with 1/4 Dakins Solution applied to right, plantar foot, wrapped with Keflex dressing per Dr Parks' s order. Patient tolerated without pain or discomfort. Patient instructed on proper technique to change dressing himself at home, verbalized understanding.
[2019-10-20] MEDS: FAMOTIDINE 20 MG TAB PO SCH (11:23)
[2019-10-20] MEDS: ENOXAPARIN SOD 40 MG/0.4 ML SYRINGE SC SCH (11:24)
[2019-10-20] MEDS: MULTIPLE VITAMIN TAB PO SCH (11:24)
[2019-10-20] MEDS: ASPirin 81 mg TAB PO SCH (11:24)
[2019-10-20] MEDS: FOLIC ACID 1 MG TAB PO SCH (11:24)
[2019-10-20 12:54] VITALS: BP 126/81
--- NOTE | 2019-10-20 13:30 | NUR ---
ROUNDS Dr Burr at bedside for rounds, new orders received and followed through. Patient updated on plan of care, verbalized understanding.
[2019-10-20 14:17] VITALS: BP 126/81
[2019-10-20] MEDS: DAKINS HALF STR 0.25% (NaHypochlorite) 473 ML TOPICAL SOL TOP SCH (14:50)
--- NOTE | 2019-10-20 15:46 | NUR ---
Discharge instructions given as ordered. Encourage to follow up with PMD as instructed. All questions and concerns addressed. Patient verbalized understanding. Medication reconciliation form completed and copy given to patient. IV removed with catheter intact, pressure dressing applied. Patient instructed on proper dressing change, verbalized understanding. Telemetry unit returned to ICU. Patient taken to [facility] with all personal belongings, accompanied by staff. [employer] called and notified patient will be in ER lobby with voucher, verbalized understanding. No distress noted at time of departure.
== END 2019-10-20 16:10 | disposition home or self-care (01) | DRG 720 ==
LOC: ER 13:04 → TELE 13:05 → TELE-WESTW 21:19
PROVIDERS: ADMIT Hospitalist; ATTEND Internal Medicine
DX: A41.9 Sepsis, unspecified organism (principal); E44.1 Mild protein-calorie malnutrition; L03.115 Cellulitis of right lower limb; E87.1 Hypo-osmolality and hyponatremia; F15.10 Other stimulant abuse, uncomplicated; F17.210 Nicotine dependence, cigarettes, uncomplicated; I10 Essential (primary) hypertension; Z91.19 Patient's noncompliance with other medical treatment and regimen; Z71.6 Tobacco abuse counseling; Z71.51 Drug abuse counseling and surveillance of drug abuser; Z68.24 Body mass index [BMI] 24.0-24.9, adult
CPT/HCPCS: 36415; 71045; 73630; 78315; 80048; 80053; 80061; 80202; 80307; 81001; 82728; 82962; 83036; 83615; 83735; 83880; 84100; 84443; 84484; 84550; 85025; 85045; 85610; 85652; 85730; 86141; 87040; 87086; 93971; 96365; G0378; J1815; J2543; J3490

== ENCOUNTER 2019-10-27 18:15 | Inpatient (IN) | payer MEDICAID ==
[~2019-10-27] VITALS: Ht 172.7 cm; Wt 77.3 kg
[2019-10-27] MEDS ORDERED: SODIUM CHLORIDE 0.9% 500 ML IV ONE (18:27)
[2019-10-27] MEDS ORDERED: CLINDAMYCIN 600MG IV 50 ML IV ONE (18:30)
[2019-10-27] MEDS ORDERED: MORPHINE SULFATE 4 MG/ML SYR/VIAL IV ONE (18:30)
[2019-10-27] MEDS ORDERED: ONDANSETRON HCL 4 MG/2 ML VIAL IV ONE (18:30)
[2019-10-27 19:12] LABS: Basophils # (auto) 0.1 10 ^3/uL (0-0.2); Eosinophils # (auto) 0.2 10 ^3/uL (0-0.8); Monocytes # (auto) 0.8 10 ^3/uL (0-1.3); Monocytes % (auto) 12.4 % (0.0-12.0)
[2019-10-27 19:14] LABS: Basophils % (auto) 1.2 % (0.0-2.0); Eosinophils % (auto) 2.3 % (0.0-7.0); Hematocrit 29.6 % (41.0-53.0); Hemoglobin 9.8 g/dL (13.5-17.5); Lymphocytes % (auto) 29.8 % (10.0-50.0); Mean Corpuscular Hemoglobin 31.7 pg (28.0-32.0); Mean Corpuscular Hgb Conc. 33.2 g/dL (32.0-36.0); Mean Corpuscular Volume 95.4 fL (80.0-100.0); Neutrophils # (auto) 3.7 10 ^3/uL (1.6-8.6); Neutrophils % (auto) 54.3 % (37.0-80.0); Nucleated Red Blood Cells % 0.1 %; Platelet Count (auto) 553 10^3/uL (140-450); White Blood Cell 6.8 10^3/uL (4.4-10.8)
[2019-10-27] MEDS ORDERED: ONDANSETRON HCL 4 MG/2 ML VIAL IV PRN (19:15)
[2019-10-27] MEDS ORDERED: NITROGLYCERIN 0.4 MG SL TAB SL PRN (19:15)
[2019-10-27] MEDS ORDERED: MORPHINE SULF INJ 2 MG/ML SYRINGE 1ML IV PRN (19:15)
[2019-10-27] MEDS ORDERED: HYDROcodone-ACET 5/325MG TAB PO PRN (19:15)
[2019-10-27] MEDS ORDERED: ACETAMINOPHEN 500 MG TAB PO PRN (19:15)
[2019-10-27 19:23] LABS: Calcium 8.5 mg/dL (8.5-10.1); Potassium 3.8 mmol/L (3.5-5.1)
[2019-10-27 19:26] LABS: Bilirubin, Total 0.3 mg/dL (0.2-1.0); Total Protein 7.5 g/dL (6.4-8.2)
[2019-10-27] MEDS: cefTRIAXone 1GM/50ML D5W 50 ML IV SCH (20:35)
--- NOTE | 2019-10-27 21:51 | NUR ---
Telemetry admit from ER NEEMA BHARDWAJ admitted to Telemetry unit after SBAR received. Patient oriented to Jose Muñoz, primary RN, unit, room, bed, and unit policies regarding patient care and visiting hours. Patient now on continuous telemetry monitoring, tele box # [65] and telemetry reading on arrival to unit is [SR 84]. Patient weighed by bedscale and encouraged to call if they need something. All questions and concerns addressed, patient verbalized understanding. Note:
--- NOTE | 2019-10-27 21:52 | NUR ---
MRSA SWAB COLLECTED AND SENT. CONTINUE TO MONITOR
[2019-10-27] MEDS: CLINDAMYCIN 300MG IV 50 ML IV SCH (22:04)
[2019-10-27] MEDS: MORPHINE SULF INJ 2 MG/ML SYRINGE 1ML IV PRN (22:04)
[2019-10-27] MEDS: FOLIC ACID 1 MG, MULTIPLE VITAMIN 10 ML, MAGNESIUM SULF SDV 50% 8 MEQ in D5W 5% 1,000 ML INJ SCH (22:08)
--- NOTE | 2019-10-27 22:30 | NUR ---
REASSESSED PAIN @ 10/08. PATIENT'S COMFORTABLE NOW.. CONTINUE TO MONITOR.
--- NOTE | 2019-10-28 | NUR ---
HOSPITALIST CALLED FOR OTHER PATIENT, REQUESTED DIET ORDER FOR PATIENT, ORDERED TO GIVE REGULAR DIET. WILL CARRY IT OUT. CONTINUE TO MONITOR.
[2019-10-28 01:31] VITALS: BP 120/70
--- NOTE | 2019-10-28 04:47 | NUR ---
PATIENT SLEEPING. NO S/S OF DISTRESS NOTED. CONTINUE CARE.
[2019-10-28 05:00] VITALS: BP 132/75
[2019-10-28] MEDS: CLINDAMYCIN 300MG IV 50 ML IV SCH ×3 (05:57→21:43)
--- NOTE | 2019-10-28 07:00 | NUR ---
Opening Shift Note Assumed care of patient, awake and alert. No S/S of distress/SOB or pain. Instructed on POC and to call for assist PRN, will continue to monitor for changes Q1hr and PRN.
[2019-10-28 09:00] VITALS: BP 141/88
[2019-10-28] MEDS: cefTRIAXone 1GM/50ML D5W 50 ML IV SCH (09:22)
[2019-10-28] MEDS: PANTOPRAZOLE 40 MG TAB PO SCH (09:23)
[2019-10-28] MEDS: MORPHINE SULF INJ 2 MG/ML SYRINGE 1ML IV PRN ×3 (10:43→18:38)
[2019-10-28 12:28] VITALS: BP 147/91
--- NOTE | 2019-10-28 12:30 | NUR ---
Received Social Service Consult to find a facility for pt to have his legs and foot heal up. Pt was discharge from here 8 days ago. He went home with his sister. However, his sister asked him to leave. Pt came back to the hospital. Called [facility] to see if a bed was open and if they would accept take him but they are not taking any clients. Pt has no ID, has an alcohol problem, Hep C, and no support. However, pt was asked if he would be willing to go to a SNF for his leg wounds to heal. Pt stated absolutely not he would rather go to the streets. Pt states he would rather be out in the streets than in a facility. Addendum: 10/28/19 at 1241 by SHELLY TEJADA Amended: Links added. Addendum: 10/28/19 at 1242 by SHELLY TEJADA Amended: Links added.
[2019-10-28 16:33] VITALS: BP 153/97
--- NOTE | 2019-10-28 19:15 | NUR ---
RECEIVED PATIENT FROM DAY SHIFT RN. PATIENT RESTING IN BED. NO S/S OF DISTRESS NOTED. C/O RIGHT LOWER LEG PAIN @ 5/10 AFTER PAIN MEDICATION GIVEN EARLIER. REINFORCED SCHEDULE OF PAIN MANAGEMENT. WILL COME BACK FOR PAIN MEDICATION WHEN THE TIME IS DUE AND PER PATIENT REQUESTS. PATIENT VERBALIZED UNDERSTANDING. POC INSTRUCTED AND ENCOURAGED PATIENT TO CALL FOR SPOUT WORKER IF NEEDED. BED IN LOWEST POSITION WITH SIDE RAILS UP X 2. CALL [place] WITHIN REACH. ALARM ON. CONTINUE TO MONITOR FOR CHANGES Q1H AND PRN.
[2019-10-28 22:00] VITALS: BP 152/92
[2019-10-28] MEDS: FOLIC ACID 1 MG, MULTIPLE VITAMIN 10 ML, MAGNESIUM SULF SDV 50% 8 MEQ in D5W 5% 1,000 ML INJ SCH (22:59)
--- NOTE | 2019-10-29 01:15 | NUR ---
PATIENT SLEEPING. NO S/S OF DISTRESS NOTED. CONTINUE CARE.
[2019-10-29 05:00] VITALS: BP 145/90
[2019-10-29] MEDS: CLINDAMYCIN 300MG IV 50 ML IV SCH ×2 (05:58→14:00)
[2019-10-29 08:00] VITALS: BP 140/88
[2019-10-29 09:00] VITALS: BP 140/88
[2019-10-29] MEDS: PANTOPRAZOLE 40 MG TAB PO SCH (09:44)
[2019-10-29] MEDS: cefTRIAXone 1GM/50ML D5W 50 ML IV SCH (09:44)
[2019-10-29 13:00] VITALS: BP 152/91
[2019-10-29 14:14] VITALS: BP 140/88
--- NOTE | 2019-10-29 14:43 | NUR ---
Discharge instructions given as ordered. Encourage to follow up with PMD as instructed. All questions and concerns addressed. Patient verbalized understanding. Medication reconciliation form completed and copy given to patient. Home medications held in Pharmacy returned to patient, and needed vaccines given. IV removed with catheter intact, pressure dressing applied. Telemetry unit returned to ICU. Patient ambulated to vehicle with all personal belongings, accompanied by staff and family member. No distress noted at time of departure.
--- NOTE | 2019-10-29 14:46 | NUR ---
PATIENT STATES HE DOES NOT WANT TO HAVE ANY SOCIAL SERVICE ARRANGEMENTS. HE HAS FAMILY AND FRIENDS HE CAN GO HOME TOO, PATIENT REFUSES ANY ASSISTANCE, AND WANTS TO BE DISCHARGED. PER DR PETERSEN PATIENT OK TO BE DISCHARGED.
== END 2019-10-29 14:30 | disposition home or self-care (01) | DRG 383 ==
LOC: ER 18:15 → TELE 18:16 → TELE-WESTW 21:24
PROVIDERS: ADMIT Nurse Practitioner Acute Care; ATTEND Internal Medicine Nephrology
DX: L03.115 Cellulitis of right lower limb (principal); B19.20 Unspecified viral hepatitis C without hepatic coma; F10.20 Alcohol dependence, uncomplicated; I10 Essential (primary) hypertension; F15.10 Other stimulant abuse, uncomplicated; F17.210 Nicotine dependence, cigarettes, uncomplicated; Z96.653 Presence of artificial knee joint, bilateral; F41.9 Anxiety disorder, unspecified; Z91.19 Patient's noncompliance with other medical treatment and regimen; Z59.0 Homelessness
CPT/HCPCS: 36415; 80053; 85025; 87081; 93971; 96365; G0378; J0696; J2405; J3490

== ENCOUNTER 2021-10-18 12:09 | Emergency (ER) | payer MEDICAID, OTHER ==
[~2021-10-18] VITALS: Ht 175.3 cm; Wt 77.1 kg
[2021-10-18] MEDS ORDERED: cloNIDine HCL 0.1 MG TAB PO ONE (12:30)
[2021-10-18] MEDS ORDERED: LISI-275 PO (12:35)
[2021-10-18] MEDS ORDERED: IBU600T PO (12:35)
[2021-10-18 13:40] VITALS: BP 170/98
== END 2021-10-18 13:42 | disposition home or self-care (01) ==
LOC: ER 12:09
DX: S16.1XXA Strain of muscle, fascia and tendon at neck level, initial encounter (principal); I16.0 Hypertensive urgency; R07.89 Other chest pain; M47.812 Spondylosis without myelopathy or radiculopathy, cervical region; F17.210 Nicotine dependence, cigarettes, uncomplicated; V89.2XXA Person injured in unspecified motor-vehicle accident, traffic, initial encounter; Y93.89 Activity, other specified; Y92.89 Other specified places as the place of occurrence of the external cause; Y99.8 Other external cause status
CPT/HCPCS: 72040

== ENCOUNTER 2022-08-07 17:20 | Emergency (ER) | payer OTHER ==
[~2022-08-07] VITALS: Ht 175.3 cm; Wt 77.2 kg
[~2022-08-07 17:20] MED LIST changes: +IBU600T PO; +LISI-275 PO; -cloNIDine HCL 0.1 MG TAB ONE; -cloNIDine HCL 0.1 MG TAB PO ONE
[2022-08-07 19:30] VITALS: BP 158/99
[2022-08-07 20:27] LABS: Basophils # (auto) 0.1 10 ^3/uL (0-0.2); Eosinophils # (auto) 0.3 10 ^3/uL (0-0.8)
[2022-08-07 20:29] LABS: Hematocrit 37.2 % (41.0-53.0); Hemoglobin 12.8 g/dL (13.5-17.5); Lymphocytes # (auto) 2.1 10 ^3/uL (0.4-5.4); Lymphocytes % (auto) 20.2 % (10.0-50.0); Mean Corpuscular Hgb Conc. 34.5 g/dL (32.0-36.0); Mean Corpuscular Volume 92.5 fL (80.0-100.0); Monocytes % (auto) 9.9 % (0.0-12.0); Neutrophils % (auto) 65.9 % (37.0-80.0); Red Blood Cells 4.02 10^6/uL (4.5-5.90); Red Cell Distribution Width 12.7 % (11.8-14.3); White Blood Cell 10.6 10^3/uL (4.4-10.8)
[2022-08-07 20:44] LABS: Albumin 3.4 g/dL (3.4-5.0); Calcium 8.8 mg/dL (8.5-10.1); Potassium 4.7 mmol/L (3.5-5.1)
[2022-08-07 20:52] LABS: BUN/Creatinine Ratio 16.8; Bilirubin, Total 0.4 mg/dL (0.2-1.0); CRP High Sensitivity 1.37 mg/dL (< 0.3)
[2022-08-07] MEDS ORDERED: cefTRIAXone SOD 1,000 MG VL IM ONE (22:00)
[2022-08-07] MEDS ORDERED: IBUP800T26 PO (23:02)
[2022-08-07] MEDS ORDERED: AMOX-277 PO (23:02)
== END 2022-08-08 03:33 | disposition home or self-care (01) ==
LOC: ER 17:20
DX: L03.116 Cellulitis of left lower limb (principal); F41.9 Anxiety disorder, unspecified; F17.210 Nicotine dependence, cigarettes, uncomplicated; F12.90 Cannabis use, unspecified, uncomplicated; F15.90 Other stimulant use, unspecified, uncomplicated
CPT/HCPCS: 36415; 73630; 80053; 83605; 85025; 85652; 86141; 87040

== ENCOUNTER 2023-07-14 18:06 | Inpatient (IN) | payer MEDICAID, OTHER ==
[~2023-07-14] VITALS: Ht 175.3 cm; Wt 82.0 kg
[~2023-07-14 18:06] MED LIST changes: +AMOX875T4 PO; +IBUP-1455 PO
[2023-07-14] MEDS ORDERED: ALBUTEROL SULF 2.5 MG/0.5ML(0.5%) NEB SOLN NEB ONE (18:45)
[2023-07-14] MEDS ORDERED: methylPREDNISolone SOD SUCC 125 MG/2 ML VL IV ONE (18:45)
[2023-07-14] MEDS ORDERED: hydrALAZINE HCL 20 MG/ML VL IV ONE (19:00)
[2023-07-14 19:15] LABS: Basophils # (auto) 0 10 ^3/uL (0-0.2); Eosinophils # (auto) 0.3 10 ^3/uL (0-0.8); Hemoglobin 10.5 g/dL (13.5-17.5); Monocytes # (auto) 1.3 10 ^3/uL (0-1.3)
[2023-07-14] MEDS ORDERED: KETOROLAC TROMETH 30 MG/ML 1ML VIAL IV ONE (19:15)
[2023-07-14] MEDS ORDERED: METHOCARBAMOL 500 MG TAB PO ONE (19:15)
[2023-07-14 19:17] LABS: Basophils % (auto) 0.6 % (0.0-2.0); Eosinophils % (auto) 3.7 % (0.0-7.0); Hematocrit 31.9 % (41.0-53.0); Lymphocytes # (auto) 2.3 10 ^3/uL (0.4-5.4); Lymphocytes % (auto) 25.8 % (10.0-50.0); Mean Corpuscular Hemoglobin 28.7 pg (28.0-32.0); Mean Corpuscular Hgb Conc. 32.8 g/dL (32.0-36.0); Mean Corpuscular Volume 87.5 fL (80.0-100.0); Monocytes % (auto) 14.6 % (0.0-12.0); Neutrophils % (auto) 55.3 % (37.0-80.0); Nucleated Red Blood Cells % 0.1 %; Red Blood Cells 3.65 10^6/uL (4.5-5.90); Red Cell Distribution Width 14.9 % (11.8-14.3)
[2023-07-14 19:29] LABS: Alanine Aminotransferase 17 U/L (7-40); Albumin 3.9 g/dL (3.2-4.8); Alkaline Phosphatase 110 U/L (46-116); Anion Gap 8 (5-15); Aspartate Aminotransferase 28 U/L (13-40); BUN/Creatinine Ratio 10.6 (10.0-20.0); Blood Urea Nitrogen 9 mg/dL (9-23); Calcium 9.6 mg/dL (8.5-10.1); Carbon Dioxide 29 mmol/L (20-30); Chloride 100 mmol/L (98-107); Glucose 77 mg/dL (74-106); Potassium 4.6 mmol/L (3.5-5.1); Sodium 137 mmol/L (136-145)
[2023-07-14 19:30] LABS: Bilirubin, Total 0.6 mg/dL (0.2-1.0); Total Protein 6.6 g/dL (5.7-8.2)
[2023-07-14 19:31] LABS: INR 1.14 (0.9-1.15); Partial Thromboplastin Time 31.3 SEC (24.5-34.5); Prothrombin Time 11.9 sec (9.3-11.8)
[2023-07-14 19:53] LABS: Anisocytosis Slight
[2023-07-14 19:54] LABS: Giant Platelets Few; Macrocytosis Slight; Platelet Estimate Markedly Increased
[2023-07-14] MEDS ORDERED: cefTRIAXone 1GM/50ML D5W 50 ML IV ONE (20:15)
[2023-07-14] MEDS ORDERED: AZITHROMYCIN 500MG/ 250ML 250 ML IV ONE (20:15)
[2023-07-14] MEDS ORDERED: LORazepam 0.5 MG TAB PO PRN (21:45)
[2023-07-14] MEDS ORDERED: ACETAMINOPHEN 325 MG TAB PO PRN (21:45)
[2023-07-14] MEDS ORDERED: ONDANSETRON HCL 4 MG/2 ML VIAL IV PRN (21:45)
[2023-07-14] MEDS ORDERED: MAALOX PLUS or MAALOX 30 ML PO PRN (21:45)
[2023-07-14] MEDS ORDERED: DOCUSATE SOD 100 MG CAP PO PRN (21:45)
[2023-07-14] MEDS ORDERED: TEMAZEPAM 15 MG CAP PO PRN (21:45)
[2023-07-14] MEDS ORDERED: IPRATROPIUM BROM 0.5 MG/2.5ML INH SOL NEB PRN (21:45)
[2023-07-14] MEDS ORDERED: HYDROcodone-ACET 5/325MG TAB PO PRN (21:45)
[2023-07-14] MEDS ORDERED: ALBUTEROL SULF 2.5 MG/0.5ML(0.5%) NEB SOLN NEB PRN (21:45)
[2023-07-14] MEDS ORDERED: SODIUM CHLORIDE 0.9% 1,000 ML IV SCH (21:45)
[2023-07-14 23:05] VITALS: BP 173/101; PULSE 116; RESP 18; TEMP 99.5; O2SAT 94
[2023-07-15] MEDS: MORPHINE SULFATE INJ 2 MG/ml SYRG IV PRN ×2 (00:53→05:12)
[2023-07-15 02:19] LABS: Rapid Influenza A Negative (Negative); Rapid Influenza B Negative (Negative)
[2023-07-15 02:20] LABS: COVID19 ANTIGEN SOFIA FIA NEGATIVE (NEGATIVE)
[2023-07-15 06:01] LABS: Basophils # (auto) 0 10 ^3/uL (0-0.2); Eosinophils # (auto) 0 10 ^3/uL (0-0.8); Eosinophils % (auto) 0.1 % (0.0-7.0); Hematocrit 30.2 % (41.0-53.0); Hemoglobin 9.9 g/dL (13.5-17.5); Lymphocytes # (auto) 0.8 10 ^3/uL (0.4-5.4); Mean Corpuscular Hemoglobin 28.3 pg (28.0-32.0); Monocytes # (auto) 0.2 10 ^3/uL (0-1.3); Monocytes % (auto) 2.5 % (0.0-12.0); Nucleated Red Blood Cells % 0.1 %
[2023-07-15 06:05] LABS: Basophils % (auto) 0.5 % (0.0-2.0); Lymphocytes % (auto) 8.7 % (10.0-50.0); Mean Corpuscular Hgb Conc. 32.9 g/dL (32.0-36.0); Mean Corpuscular Volume 86.1 fL (80.0-100.0); Neutrophils # (auto) 8.5 10 ^3/uL (1.6-8.6); Neutrophils % (auto) 88.2 % (37.0-80.0); Red Blood Cells 3.51 10^6/uL (4.5-5.90); Red Cell Distribution Width 14.7 % (11.8-14.3); White Blood Cell 9.6 10^3/uL (4.4-10.8)
[2023-07-15 06:19] LABS: Anion Gap 9 (5-15); Carbon Dioxide 25 mmol/L (20-30); Chloride 98 mmol/L (98-107)
[2023-07-15 06:21] LABS: Calcium 9.2 mg/dL (8.7-10.4)
[2023-07-15 06:25] LABS: Glucose 117 mg/dL (74-106)
[2023-07-15 06:26] LABS: BUN/Creatinine Ratio 12.3 (10.0-20.0); Blood Urea Nitrogen 9 mg/dL (9-23)
[2023-07-15 06:27] LABS: Sodium 132 mmol/L (136-145)
[2023-07-15 06:36] VITALS: O2SAT 95
[2023-07-15 10:00] VITALS: BP 140/95; PULSE 99; RESP 19; TEMP 98; O2SAT 97
[2023-07-15] MEDS ORDERED: ENOXAPARIN SOD 40 MG/0.4 ML SYRINGE SC SCH (10:00)
[2023-07-15] MEDS ORDERED: methylPREDNISolone SOD SUCC 125 MG/2 ML VL IV SCH (10:00)
[2023-07-15] MEDS ORDERED: AZITTAB PO (12:40)
[2023-07-15] MEDS ORDERED: METH4PAK PO (12:40)
[2023-07-15] MEDS ORDERED: cefTRIAXone 1GM/50ML D5W 50 ML IV SCH (20:00)
[2023-07-15] MEDS ORDERED: AZITHROMYCIN 500MG/ 250ML 250 ML IV SCH (22:00)
== END 2023-07-15 14:14 | disposition home or self-care (01) | DRG 140 ==
LOC: ER 18:06 → OVERFLOW 21:37
PROVIDERS: ADMIT Internal Medicine Geriatric Medicine; ATTEND Internal Medicine Geriatric Medicine
DX: J44.1 Chronic obstructive pulmonary disease with (acute) exacerbation (principal); J15.69 Pneumonia due to other Gram-negative bacteria; J44.0 Chronic obstructive pulmonary disease with (acute) lower respiratory infection; F17.210 Nicotine dependence, cigarettes, uncomplicated; I10 Essential (primary) hypertension; Z20.822 Contact with and (suspected) exposure to COVID-19; F41.9 Anxiety disorder, unspecified; M62.838 Other muscle spasm; J15.9 Unspecified bacterial pneumonia
CPT/HCPCS: 36415; 71045; 80048; 80053; 83605; 83880; 84484; 85025; 85610; 85730; 87040; 87426; 87804; 93005; 94640; G0378